=== PATIENT | male | born 1955 | race Asian ===

== ENCOUNTER 2020-07-06 10:41 | Inpatient (IN) | payer SELFPAY ==
[~2020-07-06] VITALS: Ht 180.3 cm; Wt 83.5 kg
[~2020-07-06 10:41] MED LIST: COLACE100 MG PO; METFORMIN HCL850 MG PO; PERCOCET1 TA2 PO; ZOF4 PO
[2020-07-06 10:42] VITALS: Ht 180.3 cm; Wt 83.5 kg
[2020-07-06 11:38] LABS: BASOPHIL % 0.7 % (0.2-1.5); PLATELET COUNT 258 x10^3mcL (152-348)
[2020-07-06 11:40] LABS: RED CELL DISTRIBUTION WIDTH 14.8 % (12.1-16.2)
[2020-07-06 11:41] LABS: CALCIUM 9.2 mg/dL (8.5-10.1); CARBON DIOXIDE 23.4 mmol/L (21-32); CREATININE SERUM 1.6 mg/dL (0.7-1.3); POTASSIUM SERUM 4.1 mmol/L (3.5-5.1)
[2020-07-06 11:45] LABS: BILIRUBIN TOTAL 0.8 mg/dL (0.20-1.00); TOTAL PROTEIN, SERUM 8.2 g/dL (6.4-8.2)
[2020-07-06 11:48] LABS: ALBUMIN 3.1 g/dL (3.4-5.0)
[2020-07-06 15:45] LABS: UA SPECIFIC GRAVITY 1.025 (1.005-1.035); microscopic required? YES; urine erythrocyte TRACE (NEGATIVE)
[2020-07-06 15:51] LABS: CREATININE UR 116.9 mg/dL
[2020-07-06 15:57] VITALS: BP 120/76
[2020-07-06 17:19] VITALS: BP 118/88
[2020-07-06 21:12] VITALS: BP 108/68
[2020-07-07 03:23] LABS: BASOPHIL % 0.7 % (0.2-1.5); PLATELET COUNT 284 x10^3mcL (152-348)
[2020-07-07 03:25] LABS: RED CELL DISTRIBUTION WIDTH 14.6 % (12.1-16.2)
[2020-07-07 04:06] LABS: CALCIUM 8.2 mg/dL (8.5-10.1); CARBON DIOXIDE 23.5 mmol/L (21-32); CREATININE SERUM 1.7 mg/dL (0.7-1.3); MAGNESIUM 2.1 mg/dL (1.8-2.4); PHOSPHOROUS 3.4 mg/dL (2.5-4.9)
[2020-07-07 05:05] VITALS: BP 115/72
[2020-07-07 08:30] VITALS: BP 115/75
[2020-07-07 12:02] VITALS: BP 112/73
[2020-07-07 16:31] VITALS: BP 111/67
[2020-07-07 19:38] VITALS: BP 177/85
[2020-07-08 05:42] LABS: BASOPHIL % 0.6 % (0.2-1.5); PLATELET COUNT 276 x10^3mcL (152-348); RED CELL DISTRIBUTION WIDTH 14.5 % (12.1-16.2)
[2020-07-08 05:45] LABS: CALCIUM 8.5 mg/dL (8.5-10.1); CARBON DIOXIDE 25.8 mmol/L (21-32); CREATININE SERUM 1.7 mg/dL (0.7-1.3); POTASSIUM SERUM 4.8 mmol/L (3.5-5.1)
[2020-07-08 05:50] VITALS: BP 109/65
[2020-07-08 08:18] VITALS: BP 101/64
[2020-07-08 12:39] VITALS: BP 103/65
[2020-07-08 17:13] VITALS: BP 108/67
[2020-07-08 18:01] VITALS: BP 108/67
[2020-07-08 20:42] VITALS: BP 99/59
[2020-07-09 06:09] VITALS: BP 102/65
[2020-07-09 08:02] LABS: CALCIUM 9.3 mg/dL (8.5-10.1); CARBON DIOXIDE 24.8 mmol/L (21-32); CREATININE SERUM 1.6 mg/dL (0.7-1.3); POTASSIUM SERUM 4.5 mmol/L (3.5-5.1)
[2020-07-09 08:34] VITALS: BP 92/55
[2020-07-09 11:54] VITALS: BP 101/62
[2020-07-09 16:39] VITALS: BP 100/56
[2020-07-09] MEDS ORDERED: ATORVASTATIN CA40 M1 PO (17:15)
[2020-07-09] MEDS ORDERED: METOPROLOL SUCC25 M2 PO (17:16)
[2020-07-09] MEDS ORDERED: MIRUD PO (17:16)
[2020-07-09] MEDS ORDERED: BAY PO (17:16)
[2020-07-09 17:30] VITALS: BP 100/56
== END 2020-07-09 19:20 | disposition home or self-care (01) | DRG 291 ==
LOC: ED 10:41 → DU 12:41 → MU 07-09 17:10
PROVIDERS: Emergency Medicine; Internal Medicine; ADMIT Family Medicine; ATTEND Family Medicine
DX: I13.0 Hypertensive heart and chronic kidney disease with heart failure and stage 1 through stage 4 chronic kidney disease, or unspecified chronic kidney disease (principal); I50.21 Acute systolic (congestive) heart failure; J18.9 Pneumonia, unspecified organism; N17.9 Acute kidney failure, unspecified; E44.0 Moderate protein-calorie malnutrition; Z20.822 Contact with and (suspected) exposure to COVID-19; E78.00 Pure hypercholesterolemia, unspecified; Z85.528 Personal history of other malignant neoplasm of kidney; Z90.5 Acquired absence of kidney; E86.0 Dehydration; E78.5 Hyperlipidemia, unspecified; N18.30 Chronic kidney disease, stage 3 unspecified; I25.5 Ischemic cardiomyopathy; I25.10 Atherosclerotic heart disease of native coronary artery without angina pectoris; Z68.27 Body mass index [BMI] 27.0-27.9, adult
CPT/HCPCS: 80201; 82962; 83880; 85378; 87804; 90658; 90732; C9113; G0378; J0696; J1644; J1940; J7030; J7060